=== PATIENT | female | born 1950 | race Two or more races ===

== ENCOUNTER 2021-01-21 08:37 | Outpatient (CLI) | payer OTHER | END 2021-01-21 08:45 | disposition home or self-care (01) | LOC: SONOGRAMA 08:37 | PROVIDERS: ATTEND Pathology Anatomic Pathology & Clinical Pathology | DX: D34 Benign neoplasm of thyroid gland (principal); E07.89 Other specified disorders of thyroid ==

== ENCOUNTER 2023-06-05 10:03 | Outpatient (CLI) | payer OTHER | END 2023-06-05 10:05 | disposition home or self-care (01) | LOC: SONOGRAMA 10:03 | PROVIDERS: ATTEND Pathology Anatomic Pathology & Clinical Pathology | DX: D34 Benign neoplasm of thyroid gland (principal); E04.9 Nontoxic goiter, unspecified ==